=== PATIENT | female | born 1940 | race Caucasian/White ===

== ENCOUNTER 2021-01-13 16:31 | Observation (INO) ==
[2021-01-13] MEDS ORDERED: Ondansetron 4 MG/2 ML VIAL IVP PRN (19:15)
[2021-01-13] MEDS ORDERED: Naloxone 0.4 MG/ML INJ IVP PRN (19:15)
[2021-01-13] MEDS ORDERED: Acetaminophen 325 MG TABLET PO PRN (19:15)
[2021-01-13] MEDS ORDERED: Perflutren Lipid Microsphere 1.3 ML in 0.9 % Sodium Chloride 8.7 ML IVP PRN (20:21)
[2021-01-13] MEDS ORDERED: Ipratropium/Albuterol Neb 3 ML IH PRN (20:26)
[2021-01-13] MEDS: 0.9 % Sodium Chloride 1,000 ML IVC SCH (20:45)
[2021-01-13 22:23] LABS: Adenovirus Not Detected (Not Detect); Bordetella Pertussis Not Detected (Not Detect); Chlamydophila pneumoniae Not Detected (Not Detect); Coronavirus 229E Not Detected (Not Detect); Coronavirus HKU1 Not Detected (Not Detect); Coronavirus NL63 Not Detected (Not Detect); Coronavirus OC43 Not Detected (Not Detect); Human Metapneumovirus Not Detected (Not Detect); Human Rhinovirus/Enterovirus DETECTED (Not Detect); Influenza A Subtype 2009 H1 Not Detected (Not Detect); Influenza B Not Detected (Not Detect); Mycoplasma pneumoniae Not Detected (Not Detect); Parainfluenza Virus 1 Not Detected (Not Detect); Parainfluenza Virus 2 Not Detected (Not Detect); Parainfluenza Virus 3 Not Detected (Not Detect); Parainfluenza Virus 4 Not Detected (Not Detect); Respiratory Syncytial Virus Not Detected (Not Detect); SARS-CoV-2 Not Detected (Not Detect)
[2021-01-13] MEDS: *HR* Heparin 5,000 UNIT/ML VIAL SQ SCH (23:26)
[2021-01-14 01:14] LABS: Basophils % 0.4 %; Eosinophils % 1.1 %
[2021-01-14 01:16] LABS: Eosinophils # 0.1 K/mcL (0.0-0.6); Hematocrit 41.8 % (35.3-44.9); Hemoglobin 13.7 g/dL (11.5-15.4); Immature Granulocytes % 0.2 % (0-4); Immature Platelets 5.4 % (1.1-6.1); Lymphocytes # 1.2 K/mcL (0.6-4.6); Lymphocytes % 20.9 %; Mean Corpuscular HGB Conc 32.8 g/dL (31.6-35.5); Mean Corpuscular Hemoglobin 29.6 pg (28.0-33.3); Mean Corpuscular Volume 90.3 fL (83.0-100.0); Mean Platelet Volume 11.4 fL (9.4-12.4); Monocytes # 0.7 K/mcL (0.0-1.3); Monocytes % 11.5 %; Neutrophils # 3.8 K/mcL (1.6-8.9); Platelet Count 136 K/mcL (140-400); Red Blood Count 4.63 M/mcL (3.82-4.97); Red Cell Distribution Width 12.7 % (11.5-14.5); Segmented Neutrophils % 65.9 %; White Blood Count 5.7 K/mcL (4.3-11.1)
[2021-01-14 01:39] LABS: Calcium 8.2 mg/dL (8.6-10.3); Magnesium 1.6 mg/dL (1.6-2.6); Potassium 3.6 mEq/L (3.5-5.1)
[2021-01-14 01:48] LABS: Thyroid Stimulating Hormone 0.346 mcIU/mL (0.340-5.600)
[2021-01-14] MEDS: 0.9 % Sodium Chloride 1,000 ML IVC SCH (05:24)
[2021-01-14] MEDS: *HR* Heparin 5,000 UNIT/ML VIAL SQ SCH ×3 (05:24→20:17)
[2021-01-14] MEDS ORDERED: *HR* HYDROcodone/Acet 5/325 mg TABLET PO PRN (09:20)
[2021-01-14] MEDS: Gabapentin 400 MG CAPSULE PO SCH ×2 (14:03→20:17)
[2021-01-14] MEDS ORDERED: Melatonin 3 MG TABLET PO SCH (21:00)
[2021-01-14 21:25] LABS: C.difficile Toxin A/B Gene PCR Not detected (Not detect); Campylobacter by PCR Not detected (Not detect); Enteroaggregative E.coli(EAEC) Not detected (Not detect); Enteropathogenic E.coli(EPEC) DETECTED (Not detect); Plesiomonas shigelloides PCR Not detected (Not detect); Salmonella PCR Not detected (Not detect); Vibrio PCR Not detected (Not detect); Vibrio cholerae PCR Not detected (Not detect); Yersinia enterocolitica PCR Not detected (Not detect)
[2021-01-14 21:26] LABS: Adenovirus F 40/41 PCR Not detected (Not detect); Astrovirus PCR Not detected (Not detect); Cryptosporidium by PCR Not detected (Not detect); Cyclospora cayetanensis PCR Not detected (Not detect); E. coli O157 by PCR Not detected (Not detect); Entamoeba histolytica PCR Not detected (Not detect); Enterotoxigenic E.coli (ETEC) Not detected (Not detect); Giardia lamblia PCR Not detected (Not detect); Norovirus GI/GII PCR Not detected (Not detect); Rotavirus A PCR Not detected (Not detect); Sapovirus PCR Not detected (Not detect); Shig/EnteroinvasiveE coli EIEC Not detected (Not detect); Shigalike tox-prod E coli STEC Not detected (Not detect)
[2021-01-15] MEDS: *HR* Heparin 5,000 UNIT/ML VIAL SQ SCH ×2 (05:26→14:26)
[2021-01-15] MEDS: Gabapentin 400 MG CAPSULE PO SCH ×2 (09:14→14:26)
[2021-01-15 10:22] VITALS: PULSE 81
[2021-01-15 11:34] VITALS: BP 145/88; TEMP 97.7; O2SAT 92
== END 2021-01-15 16:30 | disposition home or self-care (01) ==
LOC: 2NNU → SUATTDRO 18:09 → 3ANU 01-14 12:24
PROVIDERS: ADMIT Internal Medicine; ATTEND Internal Medicine